=== PATIENT | female | born 1955 | race Caucasian/White ===

== ENCOUNTER 2018-03-17 12:30 | Observation (INO) | payer OTHER, SELFPAY ==
[2018-03-17] MEDS ORDERED: NA CHLORIDE 0.9% 1,000 ML ONE (12:49)
[2018-03-17] MEDS ORDERED: ONDANSETRON 4 MG/2 ML VIAL ONE ×3 (12:49→16:33)
[2018-03-17] MEDS ORDERED: KETOROLAC 30 MG/ML INJ ONE (12:49)
[2018-03-17 12:52] LABS: Absolute Lymphocytes (CBC) 1.8 K/uL (0.7-4.9); Absolute Monocytes 0.6 K/uL (0.1-1.3); Absolute Neutrophil 5.2 K/uL (1.8-8.0); Basophils % 0.3 % (0-1.3); Eosinophils % 0.6 % (0-4.4); Hematocrit 45.2 % (36.0-45.0); Lymphocytes % 23.6 % (15.3-44.8); MCH 30.2 pg (27.0-35.0); MCV 87.7 fL (80-100); MPV 8.2 fL (7.6-11.3); Monocytes % 7.4 % (3.3-12.3); RBC Red Blood Cell Count 5.15 M/uL (3.86-4.86)
[2018-03-17 13:09] LABS: Albumin 3.7 g/dL (3.4-5.0); Bilirubin Direct 0.1 mg/dL (0-0.2); Bilirubin Total 0.4 mg/dL (0.2-1.0); Protein, Total 7.5 g/dL (6.4-8.2)
[2018-03-17] MEDS ORDERED: MORPHINE 4 MG/ML SYR ONE (14:13)
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
[2018-03-17] MEDS ORDERED: ACETAMINOPHEN 500 MG TAB PO PRN (15:39)
[2018-03-17] MEDS: NA CHLORIDE 0.9% 1,000 ML IV SCH (17:27)
[2018-03-17 18:03] VITALS: BMI 30.2
[2018-03-17] MEDS: MORPHINE 4 MG/ML SYR IV PRN (18:56)
[2018-03-17] MEDS: ONDANSETRON 4 MG/2 ML VIAL IV PRN (22:00)
[2018-03-18] MEDS: NA CHLORIDE 0.9% 1,000 ML IV SCH ×2 (01:33→09:46)
[2018-03-18] MEDS: MORPHINE 4 MG/ML SYR IV PRN (06:02)
[2018-03-18] MEDS: ONDANSETRON 4 MG/2 ML VIAL IV PRN (06:02)
[2018-03-18 06:38] LABS: Absolute Lymphocytes (CBC) 1.8 K/uL (0.7-4.9); Absolute Monocytes 0.8 K/uL (0.1-1.3); Absolute Neutrophil 6.5 K/uL (1.8-8.0); Basophils % 0.3 % (0-1.3); Eosinophils % 0.2 % (0-4.4); Lymphocytes % 19.8 % (15.3-44.8); MCH 30.9 pg (27.0-35.0); MCV 88.5 fL (80-100); MPV 8.5 fL (7.6-11.3); Monocytes % 9.1 % (3.3-12.3); RBC Red Blood Cell Count 4.64 M/uL (3.86-4.86)
--- NOTE | 2018-03-18 07:44 | RAD REPORT ---
EXAM DESCRIPTION: Jack Single View03/18/2018 6:59 am CLINICAL HISTORY: Chest pain COMPARISON: March 17, 2018 FINDINGS: Mild left basilar opacities may represent atelectasis. Small left pleural effusion may be present. The heart remains enlarged. Mid left clavicular fracture again seen
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
--- NOTE | 2018-03-18 08:32 | RAD REPORT ---
EXAM DESCRIPTION: Jack Single View03/17/2018 9:38 pm CLINICAL HISTORY: Chest pain COMPARISON: none FINDINGS: The lungs appear clear of acute infiltrate. The heart is moderately enlarged. A fracture involves the mid left clavicle with distraction of fracture fragments
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
[2018-03-18 10:25] VITALS: BP 130/60; TEMP 97.5
--- NOTE | 2018-03-18 11:46 | EKG ---
Test Date: 2018-03-18 Test Time: 08:53:46 Materials Inspector: CARMEN MEASUREMENT RESULTS: Intervals: Rate: 55 SD: 150 QRSD: 80 QT: 454 QTc: 434 [place]: P: 39 SD: 150 QRS: -1 T: 61 INTERPRETIVE STATEMENTS: Sinus bradycardia Nonspecific T wave abnormality Abnormal ECG No previous ECG available for comparison Electronically Signed On 03-18-18 11:44:23 CANTEEN OPERATOR by Sergey Kauffman
[2018-03-18 11:56] VITALS: O2SAT 98
--- NOTE | 2018-03-18 23:37 | CON ---
Date of Consultation: 03/18/2018 The consultation was requested by Dr. Demarcus Monaco regarding right Colles fracture and left clavicl e fracture. Consultation was attempted at 1 p.m., 03/18/2018, only to find out the patient had been transferred to [facility] because of concern about possible aneurysm, descending thoracic aorta . The patient's right wrist fracture splinted in the ED will be followed up as an outpatient if the patient desires to attend office visits at my clinic. Clavicle fracture will also be managed as elena cated. TIGIST/EVETTE Voice ID: [id number] Report ID: [id number]
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
== END 2018-03-18 11:05 | disposition short-term general hospital (02) ==
LOC: ER 12:30 → ERHOLD 15:35 → 2ND 16:18
PROVIDERS: ADMIT Surgery; ATTEND Surgery
DX: S42.002A Fracture of unspecified part of left clavicle, initial encounter for closed fracture (principal); S62.101A Fracture of unspecified carpal bone, right wrist, initial encounter for closed fracture; S22.42XA Multiple fractures of ribs, left side, initial encounter for closed fracture; S20.219A Contusion of unspecified front wall of thorax, initial encounter; V43.52XA Car driver injured in collision with other type car in traffic accident, initial encounter; Y92.410 Unspecified street and highway as the place of occurrence of the external cause
CPT/HCPCS: 36415; 70450; 71045; 71260; 72125; 72170; 74177; 80048; 80076; 83690; 84484; 85025; 86850; 86900; 86901; 93005; 96374; 96375; 99285; G0378; J2405; J7030; Q9967